=== PATIENT | female | born 1975 | race Caucasian/White ===

== ENCOUNTER → 2017-12-30 | Day surgery (SDC) | payer BC, OTHER ==
[2017-12-23 15:06] VITALS: Ht 154.9 cm; Wt 109.5 kg
--- NOTE | 2017-12-23 15:32 | PAT Medication Instructions ---
Service Date December 23, 2017. Current Home Medication List Levothyroxine Sodium (Synthroid), 125 MCG PO QAM Multivitamin (Multivitamin), 1 TAB PO DAILY AT 1430 Medication Instructions For Your Scheduled Surgery - Take the following medications the morning of surgery with a sip of water OTHERWISE NOTHING TO EAT OR DRINK AFTER MIDNIGHT: Levothyroxine Sodium (Synthroid), 125 MCG PO QAM If you have any questions please call us at [phone] or [phone] or [phone]
[2017-12-23 16:12] LABS: BASO % 0.5 %; BASO ABS # 0.04 K/uL (0-0.2); EOS % 2.3 %; EOS ABS # 0.19 K/uL (0-0.5); HEMATOCRIT 40.4 % (37-47); HEMOGLOBIN 13.8 g/dL (12.0-16.0); IG# 0.01 K/uL (0.00-0.02); LYMPH % 36.3 %; LYMPH ABS # 2.94 K/uL (1.2-3.4); MEAN CELL VOLUME 92.9 fL (80-100); MEAN CORPUSCULAR HEMOGLOBIN 31.7 pg (25-34); MEAN CORPUSCULAR HGB CONC 34.2 g/dl (32-36); MEAN PLATELET VOLUME 8.8 fL (7.4-10.4); MONO % 8.4 %; MONO ABS # 0.68 K/uL (0.11-0.59); NEUT % 52.4 %; NEUT ABS # 4.25 K/uL (1.4-6.5); PLATELET COUNT 268 K/uL (130-400); RED CELL DISTRIBUTION WIDTH CV 13.1 % (11.5-14.5); RED CELL DISTRIBUTION WIDTH SD 44.8 fL (36.4-46.3); WHITE BLOOD COUNT 8.11 K/uL (4.8-10.8)
[2017-12-23 16:29] LABS: CALCIUM 9.2 mg/dl (8.5-10.1); CREATININE 0.57 mg/dl (0.60-1.20); POTASSIUM 4.4 mmol/L (3.5-5.1)
[~2017-12-30] VITALS: Ht 154.9 cm; Wt 109.5 kg
[~2017-12-30] MED LIST: ATROPINE SULFATE 0.1 MG/ML 5ML SYR IV PRN; BUPIVACAINE 0.25% 30 ML VIAL ONE; DEXAMETHASONE SOD INJ 4 MG/ML VIAL ONE; EpHEDrine SULFATE INJ 50 MG/ML AMP IV PRN; FENTANYL CITRATE INJ 50 MCG/1 ML 2 ML VIAL IV PRN; FENTANYL CITRATE INJ 50 MCG/1 ML 2 ML VIAL ONE; GLYCOPYRROLATE INJ 0.2 MG/ML VIAL ONE; IBUP-1450 PO; IBUPROFEN 600 MG TAB PO PRN; KETOROLAC TROMETHAMINE 30 MG/ML VIAL IV. PRN; KETOROLAC TROMETHAMINE 30 MG/ML VIAL ONE; LACTATED RINGER'S 1000ML 1,000 ML IV SCH; LARYING-O-JET KIT (LTA) ONE; LEVO125T72 PO; LIDOCAINE HCL 2% 2 ML VIAL (20MG/ML) ONE; MIDAZOLAM HCL 1 MG/ML 2ML VIAL ONE; MULT-506 PO; NEOSTIGMINE METHYLSULFATE 5 MG/5 ML SYR ONE; ONDANSETRON INJ 2 MG/ML 2 ML VIAL IV PRN; ONDANSETRON INJ 2 MG/ML 2 ML VIAL ONE; PROMETHAZINE HCL INJ 25 MG in SODIUM CHLORIDE 0.9% 50ML 50 ML IV PRN; PROPOFOL IV EMULSION 10 MG/ML 20 ML VIAL ONE; SODIUM CHLORIDE 0.9% 1000ML 1,000 ML IV SCH
[2017-12-30 06:01] VITALS: BP 151/94; PULSE 87; TEMP 36.7; O2SAT 97
--- NOTE | 2017-12-30 06:49 | History & Physical Bridge Note ---
H&P Re-Evaluation Bridge Note: I have examined the patient, reviewed the History & Physical and in the interval since the performance of the History & Physical I have noted the following changes of clinical significance: No changes noted
--- NOTE | 2017-12-30 08:08 | [facility] Post Operative Brief Note ---
Immediate Operative Summary Operative Date December 30, 2017. Pre-Operative Diagnosis Desires permanent sterilization. Post-Operative Diagnosis Same as preop. Procedure(s) Performed Laparoscopic bilateral salpingectomy Surgeon Dr. Alvarez Order Expediter Surgeon(s) None Estimated Blood Loss 5 ML Findings Consistent with Post-Op Diagnosis Fluids (cc crystalloids) 1000 Specimens A: Portion of bilateral fallopian tubes Drains None Anesthesia Type General Complication(s) none Disposition Disposition: Recovery Room / PACU
--- NOTE | 2017-12-30 08:21 | [facility] Operative Report ---
Operative Report Operative Date December 30, 2017. Pre-Operative Diagnosis Desires permanent sterilization. Post-Operative Diagnosis Same as preop. Procedure(s) Performed Laparoscopic bilateral salpingectomy Surgeon Dr. Alvarez Stallion Keeper Surgeon(s) None Estimated Blood Loss 5 ML Findings Large anteverted boggy appearing uterus Normal fallopian tubes bilaterally with paratubal cysts Normal appearing right ovary Left ovary with a cyst Anterior and posterior cul-de-sac free of disease Normal appearing liver edge Fluids 1000 Specimens A: Bilateral fallopian tubes Drains None Anesthesia Type General Complication(s) none Disposition Recovery Room / PACU Indications 42 yo P1 desiring permanent sterilization. Description of Procedure The patient was taken to the OR where general anesthesia was easily obtained. The patient was then prepped and draped in a sterile fashion and placed in dorsal lithotomy position. A weighted speculum was introduced into the patient s vagina for cervical visualization. Once the cervix was visualized, a single- toothed tenaculum was applied to the upper lip of the cervix, and acorn manipulator was introduced into the patients cervix. A mcduffie catheter was placed without difficulty. Attention was then drawn to the abdomen where a 5% marcaine was injected into the umbilicus. A 5 mm incision was done in the inferior portion of the umbilicus. Under direct visualization, a 5 mm trocar was introduced into the patients abdomen. Once intraperitoneal placement was confirmed, pneumoperitoneum was started. Opening pressure was 3 mmHg, so high flow was obtained and pneumoperitoneum was easily obtained. Once pneumoperitoneum was easily obtained, two additional 5 mm trocars were placed in the left upper and lower quadrants and under direct visualization. The patient was placed in Trendelenburg position, revealed pelvic structures. Left ovarian cyst was noted, simple follicular-appearing cyst, 3 cm in diameter and bilateral fallopian tube cysts. Attention was then drawn to the right fallopian tube. The IP ligament was identified and fallopian tube was then grasped by the fimbria and incised from the mesosalpinx with the RUBI Harmonic. Good hemostasis was noted from the fallopian tube sites and the operative site. Specimen was then removed from the patients abdomen. The same procedure was performed on the contralateral side. Hemostasis noted. All laparoscopic trocars were removed without incident. The skin was closed with 4-0 monocyrl and dermabond. All vaginal instrumention was removed without difficulty. Hemostasis noted. Sponge, lap and needle counts were correct x2. The patient was taken to the recovery room in stable condition. I attest to the content of the Intraoperative Record and any orders documented therein. Any exceptions are noted below.
--- NOTE | 2017-12-30 08:41 | Discharge Instructions ---
Discharge Instructions Date of Service December 30, 2017. Admission Reason for Admission: Desires Permanent Sterilization Discharge Discharge Diagnosis / Problem: Post-op Discharge Goals Goal(s): Routine recovery after surgery Activity Recommendations Activity Limitations: as noted below ACTIVITY RECOMMENDATIONS: * Avoid tampons, douching, hot tubs, pools, and intercourse until bleeding has stopped. * May shower as usual. * No strenuous activity for 24-48 hours. After 24-48 hours, you can do anything you feel like doing (driving and sports are okay). RETURN TO SCHOOL/WORK: * You may return to school or work after 24 hours unless specified by your physician. DIET: * Resume previous diet. MEDICATIONS: Resume previous medications unless instructed otherwise by your surgeon. Ibuprofen 200mg 2-3 tablets every 4-6 hours as needed --OR-- Aleve 2 tablets every 8-12 hours as needed for post-operative discomfort Medications are over the counter. Tylenol may be used if above medications are contraindicated or not preferred. Medication should be taken with food or milk. do not take on an empty stomach. SPECIAL CARE INSTRUCTIONS: * Check temperature twice daily for one week. Report any elevation over 101 degrees. * Call office if you experience increased pelvic pain or discomfort not relieved by pain medicine, if you have foul smelling vaginal discharge, if you have bleeding that is heavier than a normal menstrual flow. If you are changing a maxi pad every 1- 2 hours, this is too heavy. vaginal spotting is normal for 1-2 weeks. FOLLOW UP VISIT: Call your doctor's office for a post-operative visit. . Current Hospital Diet Patient's current hospital diet: Discharge Diet Recommended Diet: Regular Diet Procedures Procedures Performed: Laparoscopic bilateral salpingectomy Pending Studies Studies pending at discharge: no Medical Emergencies . Who to Call and When: Medical Emergencies: If at any time you feel your situation is an emergency, please call 911 immediately. . Non-Emergent Contact Non-Emergency issues call your: Specialist . . "Provider Documentation" section prepared by Amanda Hernandez. .
--- NOTE | 2017-12-30 09:29 | Anesthesiology Progress Note ---
Anesthesia Post Op Note Date & Time December 30, 2017 at 09:28 Vital Signs Pain Intensity: 0 Vital Signs Past 12 Hours Date Time Temp Pulse Resp B/P (MAP) Pulse Ox O2 Delivery O2 Flow Rate FiO2 12/30/17 09:20 36.7 81 26 122/74 93 Nasal Cannula 2 12/30/17 09:10 81 26 126/88 93 Nasal Cannula 2 12/30/17 09:00 90 24 137/78 94 Nasal Cannula 2 12/30/17 08:50 93 22 126/84 93 Nasal Cannula 2 12/30/17 08:40 90 23 134/82 92 Oxymask 10 12/30/17 08:30 88 18 137/86 92 Oxymask 10 12/30/17 08:24 36.2 84 18 143/81 94 Oxymask 10 12/30/17 06:01 36.7 87 18 151/94 (113) 97 Room Air Notes Mental Status: alert / awake / arousable, participated in evaluation Pt Amnestic to Procedure: Yes Nausea / Vomiting: adequately controlled Pain: adequately controlled Airway Patency, RR, SpO2: stable & adequate BP & HR: stable & adequate Hydration State: stable & adequate Anesthetic Complications: no major complications apparent
[2017-12-30 09:32] VITALS: BP 105/63; PULSE 83; TEMP 36.8; O2SAT 94
[2017-12-30 10:02] VITALS: BP 116/85; PULSE 80; TEMP 36.7; O2SAT 95
== END | disposition home or self-care (01) ==
LOC: C.ACU 05:27
PROVIDERS: ATTEND Obstetrics & Gynecology Obstetrics
DX: Z30.2 Encounter for sterilization (principal); E03.9 Hypothyroidism, unspecified; E66.01 Morbid (severe) obesity due to excess calories; Z83.3 Family history of diabetes mellitus; Z82.49 Family history of ischemic heart disease and other diseases of the circulatory system; Z82.3 Family history of stroke; Z87.891 Personal history of nicotine dependence; Z88.5 Allergy status to narcotic agent; Z86.69 Personal history of other diseases of the nervous system and sense organs